=== PATIENT | male | born 1960 ===

== ENCOUNTER → 2016-12-13 | Outpatient (CLI) | payer BC ==
[2016-12-13 19:02] LABS: SYNOVIAL FLUID APPEARANCE CLEAR; SYNOVIAL FLUID COLOR PALE YELLOW; SYNOVIAL FLUID MONONUC RELAT 29.3 %; SYNOVIAL FLUID POLYNUC RELAT 70.7 %
== END | disposition home or self-care (01) ==
LOC: C.LABSPEC 16:50
PROVIDERS: ATTEND Orthopaedic Surgery
DX: M19.032 Primary osteoarthritis, left wrist (principal)